=== PATIENT | female | born 1955 | race Caucasian/White ===

== ENCOUNTER 2019-10-26 14:40 | Outpatient (CLI) | payer OTHER, SELFPAY ==
--- NOTE | ~2019-10-26 | MM_ITS ---
EXAMINATION: MM screening [facility] BI w elle HISTORY: Screening mammogram TECHNIQUE: Craniocaudal and mediolateral oblique 3-D tomosynthesis images were obtained and synthetic 2-D images were generated. CAD analysis was submitted and interpreted. COMPARISON: 09/28/2018 bilateral digital screening mammogram BREAST PARENCHYMAL COMPOSITION: There are scattered areas of fibroglandular density.. FINDINGS: Benign-appearing intramammary lymph node, upper outer quadrant right breast. Stable fibrogl andular asymmetry. There is no evidence of suspicious mass, calcification, or architectural distortio n to suggest malignancy in either breast. There has been no suspicious interval change. IMPRESSION: 1. No mammographic evidence of malignancy. 2. Recommend routine screening mammography in one year. BI-RADS Category 2: Benign finding(s). Reviewed, dictated and finalized at location A. DIRECTOR
== END 2019-10-26 14:41 | disposition home or self-care (01) ==
LOC: ANHIMG 14:45
DX: Z12.31 Encounter for screening mammogram for malignant neoplasm of breast (principal)
CPT/HCPCS: 77063; 77067

== ENCOUNTER 2021-04-01 15:28 | Outpatient (CLI) | payer OTHER, SELFPAY ==
--- NOTE | ~2021-04-01 | MM_ITS ---
EXAMINATION: MM screening [facility] BI w elle HISTORY: Screening TECHNIQUE: Craniocaudal and mediolateral oblique 3-D tomosynthesis images were obtained and synthetic 2-D images were generated. CAD analysis was submitted and interpreted. COMPARISON: Comparison to multiple prior studies sequentially, with oldest reviewed study dated 09/28. BREAST PARENCHYMAL COMPOSITION: There are scattered areas of fibroglandular density. FINDINGS: There is no evidence of suspicious mass, calcification, or architectural distortion to sugg est malignancy in either breast. There has been no suspicious interval change. IMPRESSION: 1. No mammographic evidence of malignancy. 2. Recommend routine screening mammography in one year. BI-RADS Category 1: Negative Reviewed, dictated and finalized at location A.
== END 2021-04-01 15:29 | disposition home or self-care (01) ==
LOC: ANHIMG 15:30
PROVIDERS: PCP Family Medicine; Visit Provider Family Medicine
DX: Z12.31 Encounter for screening mammogram for malignant neoplasm of breast (principal)
CPT/HCPCS: 77063; 77067

== ENCOUNTER 2023-11-21 11:30 | Outpatient (CLI) | payer OTHER, SELFPAY ==
--- NOTE | ~2023-11-21 | MM_ITS ---
EXAMINATION: MM screening [facility] BI w elle HISTORY: Screening mammogram TECHNIQUE: Craniocaudal and mediolateral oblique 3-D tomosynthesis images were obtained and synthetic 2-D images were generated. CAD analysis was submitted and interpreted. COMPARISON: 04/01/2021, 10/26/2019 bilateral screening mammogram examinations BREAST PARENCHYMAL COMPOSITION: There are scattered areas of fibroglandular density. FINDINGS: There is no evidence of suspicious mass, calcification, or architectural distortion to sugg est malignancy in either breast. There has been no suspicious interval change. IMPRESSION: 1. No mammographic evidence of malignancy. 2. Recommend routine screening mammography in one year. BI-RADS Category 1: Negative Reviewed, dictated and finalized at location A.
== END 2023-11-21 11:31 | disposition home or self-care (01) ==
LOC: ANHIMG 11:47
PROVIDERS: PCP Family Medicine; Visit Provider Family Medicine
DX: Z12.31 Encounter for screening mammogram for malignant neoplasm of breast (principal)
CPT/HCPCS: 77063; 77067

== ENCOUNTER 2025-03-21 13:38 | Outpatient (CLI) | payer MEDICARE, MEDICAID, SELFPAY ==
--- NOTE | ~2025-03-21 | MM_ITS ---
EXAMINATION: MM screening [facility] BI w elle HISTORY: Screening TECHNIQUE: Craniocaudal and mediolateral oblique 3-D tomosynthesis images were obtained and synthetic 2-D images were generated. CAD analysis was submitted and interpreted. COMPARISON: Comparison to multiple prior studies sequentially, with oldest reviewed study dated 09/28. BREAST PARENCHYMAL COMPOSITION: Not dense: There are scattered areas of fibroglandular density. FINDINGS: There is no evidence of suspicious mass, calcification, or architectural distortion to sugg est malignancy in either breast. There has been no suspicious interval change. IMPRESSION: 1. No mammographic evidence of malignancy. 2. Recommend routine screening mammography in one year. BI-RADS Category 1: Negative Reviewed, dictated and finalized at location A.
--- OUTSIDE RECORDS SUMMARY | 2025-03-21 13:42 | XMS_ITS | Referral Summary ---
Author Organization [facility] Address [address] [place] [address] Care Team Providers Care Clay Artisan Name Role Phone Klaus Krishnamurthy DO Primary Care Provider + Encounters Date Type Department Care Team Description 03/10/2025 7:45 AM CDT Lab [facility] [address] [place] [id number] 03/03/2025 Orders Only [facility] [address] [place] [id number] Klaus Krishnamurthy DO 01/17/2025 1:00 PM CDT Office Visit [facility] [address] [facility] [address] [place] [phone] Azalea Pearl NP TIA (transient ischemic attack); Hypokalemia from Last 3 Months Allergies Active Allergy Reactions Criticality Noted Date Comments Azithromycin Clindamycin Other (See comments) Low 03/30/2019 bleeding Guaifenesin Unknown 03/30/2019 unknown Nitrofurantoin Medications cholecalciferol (VITAMIN D-3) 2,000 unit capsule Take 2 capsules (4,000 Units total) by mouth daily Active potassium chloride ER 20 mEq CR tablet TAKE 1 TABLET(20 MEQ) BY MOUTH THREE TIMES DAILY 270 tablet 3 4 Active spironolactone (ALDACTONE) 25 mg tablet TAKE 1 TABLET BY MOUTH EVERY DAY 90 tablet 3 4 Active magnesium oxide (MAG-OX) 400 mg (241.3 mg elemental magnesium) tabletIndicatio ns:hypomagnesem ia Take 1 tablet (400 mg total) by mouth daily Active aspirin 81 mg chewable tablet Take 1 tablet (81 mg total) by mouth daily 30 tablet 1 5 12/10/19 Active Additional Information Patient not taking.Reported on 01/17/2025 atorvastatin (LIPITOR) 10 mg tablet Take 1 tablet (10 mg total) by mouth daily 30 tablet 1 5 12/10/19 Active Additional Information Patient not taking.Reported on 01/17/2025 Active Problems Problem Noted Date Diagnosed Date TIA (transient ischemic attack) 12/08/2024 Nausea and vomiting, unspecified vomiting type 0 05/14/2024 Hypomagnesemia 03/30/2019 Hypokalemia 04/03/2009 Ventricular premature beats 04/03/2009 Social History Tobacco Use Types Packs/Day Years Used Date Smoking Tobacco: Never Smokeless Tobacco: Never Tobacco Cessation:Counseling Given: Not Answered Alcohol Use Standard Drinks/Week Comments Not Currently 0 (1 standard drink = 0.6 oz pur e alcohol) AUDIT-C Answer Date Recorded Q1: How often do you have a drink containing alcohol? Never 05/14/2024 Q2: How many drinks containi ng alcohol do you have on a typical day when you are drinking? Patient does not drink Q3: How often do you have si x or more drinks on one occasion? Never 05/14/2024 Personal Safety Answer Date Recorded Have you ever been in or are you currently in a harmful physical or emotional relationship or is someone making you feel afraid or unsafe? 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 Gender Identity Not on file Sexual Orientation Not on file Last Filed Vital Signs Vital Sign Reading Time Taken Comments Blood Pressure 118/80 01/17/2025 12:55 PM CDT Pulse 84 01/17/2025 12:55 PM CDT Temperature 36.5 C (97.7 F) 12/09/2024 7:30 AM CDT Respiratory Rate 16 12/09/2024 7:30 AM CDT Oxygen Saturation 98% 01/17/2025 12:55 PM CDT Inhaled Oxygen Concentration - - Weight 59.4 kg (131 lb) 01/17/2025 12:55 PM CDT Height 165.1 cm (5' 5) 01/17/2025 12:55 PM CDT Body Mass Index 21.8 01/17/2025 12:55 PM CDT Plan of Treatment Not on file Procedures Procedure Name Priority Date/Time Associated Diagnosis Comments DIFFERENTIAL AUTO Routine 03/10/2025 7:5 1 AM CDT VITAMIN D 25 HYDROXY Routine 03/10/2025 7:51 AM CDT VITAMIN B12 Routine 03/10/2025 7:51 AM CDT T4, FREE Routine 03/10/2025 7:51 AM CDT TSH Routine 03/10/2025 7:51 AM CDT HEPATIC FUNCTION PANEL Routine 03/10/2025 7:51 AM CDT LIPID PANEL Routine 03/10/2025 7:51 AM CDT CBC WITH AUTO DIFFERENTIAL Routine 03/10/2025 7:51 AM CDT from Last 3 Months Results * Differential, auto (03/10/2025 7:51 AM CDT) Pathologist [facility] Neutrophil abs 2.45 1.50 - 6.50 K/cumm Imm gran abs 0.00 0.00 - 0.10 K/cumm [facility] Lymphocyte abs 2.37 0.80 - 3.30 K/cumm [facility] Monocyte abs 0.56 0.20 - 0.80 K/cumm [facility] Eosinophil abs 0.20 0.00 - 0.50 K/cumm [facility] Basophil abs 0.06 0.00 - 0.10 K/cumm [facility] Neutrophil pct 43.5 % [facility] Comment: Interpretive Data Percent cell count reference ranges are not reported, since discordance with absolute values may lead to misinterpretation of CBC data. Current Interpretive Data was last revised on 2017. Imm gran pct 0.0 % [facility] Comment: Interpretive Data Percent cell count reference ranges are not reported, since discordance with absolute values may lead to misinterpretation of CBC data. Current Interpretive Data was last revised on 2017. Lymphocyte pct 42.0 % [facility] Comment: Interpretive Data Percent cell count reference ranges are not reported, since discordance with absolute values may lead to misinterpretation of CBC data. Current Interpretive Data was last revised on 2017. Monocyte pct 9.9 % [facility] Comment: Interpretive Data Percent cell count reference ranges are not reported, since discordance with absolute values may lead to misinterpretation of CBC data. Current Interpretive Data was last revised on 2017. Eosinophil pct 3.5 % [facility] Comment: Interpretive Data Percent cell count reference ranges are not reported, since discordance with absolute values may lead to misinterpretation of CBC data. Current Interpretive Data was last revised on 2017. Basophil pct 1.1 % [facility] Comment: Interpretive Data Percent cell count reference ranges are not reported, since discordance with absolute values may lead to misinterpretation of CBC data. Current Interpretive Data was last revised on 2017. Blood 03/10/2025 7:51 AM CDT 03/10/2025 8:15 AM CDT Klaus Krishnamurthy DO LAB BLOOD ORDERABLES Fin al Result [facility] [address] [facility] [place] [address] * CBC with auto differential (03/10/2025 7:51 AM CDT) WBC 5.64 3.80 - 9.90 K/cumm Hgb 14.7 11.9 - 15.5 g/dL [facility] Hct 44.5 35.6 - 45.5 % [facility] Plt 267 150 - 400 K/cumm [facility] MPV 11.0 9.1 - 12.3 fL [facility] RBC 4.82 3.90 - 5.20 M/cumm [facility] MCV 92.3 81.3 - 96.4 fL [facility] MCH 30.5 27.1 - 33.3 pg [facility] MCHC 33.0 32.3 - 35.7 g/dL [facility] RDW CV 13.6 11.1 - 14.9 % [facility] RDW SD 46.5 35.7 - 48.1 fL [facility] NRBC abs 0.00 0.00 - 0.01 K/cumm [facility] Blood 03/10/2025 7:51 AM CDT 03/10/2025 8:15 AM CDT Klaus Krishnamurthy DO LAB BLOOD ORDERABLES Fin al Result Performing Organization Address [facility] Co de Phone Number [address] [place] [address] * Vitamin D 25 hydroxy (03/10/2025 7:51 AM CDT) Vitamin D 25-OH 78.0 30.0 - 80.0 ng/mL Blood 03/10/2025 7:51 AM CDT 03/10/2025 8:15 AM CDT Klaus Krishnamurthy DO LAB BLOOD ORDERABLES Fin al Result Performing Organization Address [facility] Co de Phone Number [address] [place] [address] * TSH (03/10/2025 7:51 AM CDT) Thyroid Stimulating Hormone 0.79 0.30 - 4.20 mcIUnit/mL Blood 03/10/2025 7:51 AM CDT 03/10/2025 8:15 AM CDT Klaus Krishnamurthy DO LAB BLOOD ORDERABLES Fin al Result Performing Organization Address [facility] Co de Phone Number [address] [place] [address] * T4, free (03/10/2025 7:51 AM CDT) Pathologist [facility] Free T4 0.91 0.90 - 1.70 ng/dL Blood 03/10/2025 7:51 AM CDT 03/10/2025 8:15 AM CDT Klaus Krishnamurthy LAB BLOOD ORDERABLES Fin al Result Performing Organization Address [facility] de Phone Number [address] [place] [address] * Vitamin B12 (03/10/2025 7:51 AM CDT) [facility] Vitamin B12 275 230 - 1,250 pg/mL Blood 03/10/2025 7:51 AM CDT 03/10/2025 8:15 AM CDT Klaus Krishnamurthy LAB BLOOD ORDERABLES Fin al Result Performing Organization Address [facility] de Phone Number [address] [place] [address] * Hepatic function panel (03/10/2025 7:51 AM CDT) [facility] Bilirubin, total 0.6 0.1 - 1.2 mg/dL Bilirubin, direct 0.2 0.1 - 0.3 mg/dL [facility] Protein, pl 6.9 6.5 - 8.5 g/dL [facility] Albumin 4.3 3.5 - 5.0 g/dL [facility] Alk phos 91 40 - 130 Units/L [facility] ALT 18 7 - 45 Units/L [facility] AST 27 10 - 45 Units/L [facility] Blood 03/10/2025 7:51 AM CDT 03/10/2025 8:15 AM CDT Klaus Krishnamurthy DO LAB BLOOD ORDERABLES Fin al Result Performing Organization Address [facility] Co de Phone Number [address] [place] [address] * (ABNORMAL) Lipid panel (03/10/2025 7:51 AM CDT) Cholesterol 271(H) 30 - 199 mg/dL Comment: Interpretive Data Ages < or = 19 years Acceptable: <170 mg/dL Borderline high: 170-199 mg/dL High: >or= 200 mg/dL Ages > or = 20 years Desirable: <200 mg/dL Borderline high: 200-239 mg/dL High: >or= 240 mg/dL Literature References: 1. Expert Panel on Integrated Guidelines for Cardiovascular Health and Risk Reduction in Children and Adolescents. Pediatrics 2011;128:S213 2. NCEP Expert Panel. Circulation 2004;110:227 Current Interpretive Data was last revised on 2018. Triglycerides 149 <=149 mg/dL [facility] Comment: Interpretive Data Ages < or = 9 years Acceptable: <75 mg/dL Borderline high: 75-99 mg/dL High: >or= 100 mg/dL Ages 10 to 20 years Acceptable: <90 mg/dL Borderline high: 90-129 mg/dL High: >or= 130 mg/dL Ages > or = 20 years Desirable: <150 mg/dL Borderline high: 150-199 mg/dL High: 200-499 mg/dL Very high: >or= 499 mg/dL Literature References: 1. Expert Panel on Integrated Guidelines for Cardiovascular Health and Risk Reduction in Children and Adolescents. Pediatrics 2011;128:S213 2. NCEP Expert Panel. Circulation 2004;110:227 Current Interpretive Data was last revised on 2018. HDL 65 >=40 mg/dL [facility] Comment: Interpretive Data Ages < or = 19 years Acceptable: >45 mg/dL Borderline low: 40-45 mg/dL Low: <40 mg/dL Ages > or = 20 years Desirable: >or= 60 mg/dL Low: <40 mg/dL Literature References: 1. Expert Panel on Integrated Guidelines for Cardiovascular Health and Risk Reduction in Children and Adolescents. Pediatrics 2011;128:S213 2. NCEP Expert Panel. Circulation 2004;110:227 Current Interpretive Data was last revised on 2018. LDL, calculated 179(H) <=129 mg/dL [facility] Comment: Interpretive Data Ages < or = 19 years Acceptable: <110 mg/dL Borderline high: 110-129 mg/dL High: >or= 130 mg/dL Ages > or = 20 years Optimal: <100 mg/dL Near optimal: 100-129 mg/dL Borderline high: 130-159 mg/dL High: >160 mg/dL Calculated using the Barak LDL-C estimating equation. This equation was implemented on 2024. Prior to this date LDL-C was estimated using the Friedewald equation. Literature References: 1. Expert Panel on Integrated Guidelines for Cardiovascular Health and Risk Reduction in Children and Adolescents. Pediatrics 2011;128:S213 2. NCEP Expert Panel. Circulation 2004;110:227 3. Barak Pinto et al. RAINE Cardiol. 2019January 12;5(5):540-548. doi: 10.1001/[email or web address] Current Interpretive Data was last revised on 2024. Non-HDL Cholesterol 206 mg/dL [facility] Comment: Interpretive Data Ages < or = 19 years Acceptable: <120 mg/dL Borderline high: 120-144 mg/dL High: >145 mg/dL Ages > or = 20 years When triglycerides are >200 mg/dL, Non-HDL cholesterol is a secondary target of therapy with treatment goals that are 30 mg/dL greater than the LDL cholesterol target. Literature References: 1. Expert Panel on Integrated Guidelines for Cardiovascular Health and Risk Reduction in Children and Adolescents. Pediatrics 2011;128:S213 2. NCEP Expert Panel. Circulation 2004;110:227 Current Interpretive Data was last revised on 2018. Chol/HDL ratio 4 [facility] Blood 03/10/2025 7:51 AM CDT 03/10/2025 8:15 AM CDT us Klaus Krishnamurthy DO LAB BLOOD ORDERABLES Fin al Result [facility] [address] [facility] [place] [address] from Last 3 Months Insurance IDPA IDPA [facility] MEDICARE ADVANTAGE IDPA Advance Directives For more information, please contact: [phone] Documents on File Type Date Recorded Patient Portable Canteen Operator Expl anation ADVANCE DIRECTIVE 12/08/2024 3:48 PM Power of Tassel Maker-Medical * Full Code (Latest Code Status on File) Date Activated Date Inactivated Comments 12/08/2024 10:34 AM 12/09/2024 2:41 PM * Full Code Date Activated Date Inactivated Comments 05/14/2024 5:49 PM 05/15/2024 5:28 PM Care Teams Clay Artisan Relationship Specialty Start Date End Date Klaus Krishnamurthy DO [address] [address] PCP - General Family Medicine 12/08/24
--- OUTSIDE RECORDS SUMMARY | 2025-03-21 13:43 | XMS_ITS | Clinical Summary ---
Author Organization [facility] Address [address] [place] [address] Care Team Providers Care Warp Splitter Name Role Phone Klaus Krishnamurthy DO Primary Care Provider + Allergies Active Allergy Reactions Criticality Noted Date [...] mouth daily 30 tablet 1 5 12/10/19 26 Active Additional Information Patient not taking.Reported on 01/17/2025 Active Problems Problem Noted Date Diagnosed Date TIA (transient ischemic attack) 12/08/2024 Nausea and vomiting, unspecified vomiting type 0 05/14/2024 Hypomagnesemia 03/30/2019 Hypokalemia 04/03/2009 Ventricular premature beats 04/03/2009 Encounters Date Type Department Care Team Description 03/10/2025 7:45 AM CDT Lab [facility] [address] [place] [address] 03/03/2025 Orders Only [facility] [address] [place] [address] Klaus Krishnamurthy, 01/17/2025 1:00 PM CDT Office Visit [facility] Neurology [address] [facility] [address] [place] [address] Azalea Pearl NP TIA (transient ischemic attack); Hypokalemia from Last 3 Months Medical History Medical History Date Comments Hypokalemia Hypomagnesemia Vitamin D deficiency Gitelman syndrome Family History Medical History Relation Name Comments Hypertension Cousin Stroke Mother's Brother Stroke Mother's Sister Relation Name Status Comments Cousin Mother's Brother Mother's Sister Social History Tobacco Use Types Packs/Day Years [...] on file 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 Gender Identity Not on file Sexual Orientation Not on file Obstetrics History Last Filed Vital Signs Vital Sign Reading [...] 01/17/2025 12:55 PM CDT Plan of Treatment Health Maintenance Due Date Last Done Comments Colon Cancer Screening-Colonoscopy 1955 Depression Screening 1957 Hepatitis C Screening 1957 Osteoporosis Screening-Bone Density Scan 1957 DTaP/Tdap/Td Vaccine (1 - Tdap) 1968 Hepatitis B Screening 1975 Pneumococcal vaccine 65+ (1 of 1 - PCV) 2007 Zoster Vaccine (1 of 2) 2007 Breast Cancer Screening-Mammogram 09/29/2019 019, 09/28/2018 Well Visit 65+ 2022 Influenza Vaccine (#1) 2025 Fall Risk Assessment 12/09/2025 12/09/2024 Procedures Procedure Name Priority Date/Time Associated Diagnosis [...] * Differential, auto (03/10/2025 7:51 AM CDT) Neutrophil abs 2.45 1.50 - 6.50 K/cumm Imm gran abs 0.00 0.00 - 0.10 K/cumm [facility] Lymphocyte abs 2.37 0.80 - 3.30 K/cumm [facility] Monocyte abs 0.56 0.20 - 0.80 K/cumm [facility] Eosinophil abs 0.20 0.00 - 0.50 K/cumm [facility] Basophil abs 0.06 0.00 - 0.10 K/cumm [facility] Neutrophil pct 43.5 % [facility] Comment: Interpretive Data Percent cell count reference ranges are not reported, since discordance with absolute values may lead to misinterpretation of CBC data. Current Interpretive Data was last revised on 2017. Imm gran pct 0.0 % [facility] Comment: Interpretive Data Percent cell count reference ranges are not reported, since discordance with absolute values may lead to misinterpretation of CBC data. Current Interpretive Data was last revised on 2017. Lymphocyte pct 42.0 % [facility] Comment: Interpretive Data Percent cell count reference ranges are not reported, since discordance with absolute values may lead to misinterpretation of CBC data. Current Interpretive Data was last revised on 2017. Monocyte pct 9.9 % [facility] Comment: Interpretive Data Percent cell count reference ranges are not reported, since discordance with absolute values may lead to misinterpretation of CBC data. Current Interpretive Data was last revised on 2017. Eosinophil pct 3.5 % [facility] Comment: Interpretive Data Percent cell count reference ranges are not reported, since discordance with absolute values may lead to misinterpretation of CBC data. Current Interpretive Data was last revised on 2017. Basophil pct 1.1 % [facility] Comment: Interpretive Data Percent cell count reference ranges are not reported, since discordance with absolute values may lead to misinterpretation of CBC data. Current Interpretive Data was last revised on 2017. Blood 03/10/2025 7:51 AM CDT 03/10/2025 8:15 AM CDT Klaus Krishnamurthy DO LAB BLOOD ORDERABLES Fin al Result Performing Organization Address [facility] de Phone Number [facility] [address] [place] [address] * CBC with auto differential (03/10/2025 7:51 AM CDT) [facility] WBC 5.64 3.80 - 9.90 K/cumm Hgb 14.7 11.9 - 15.5 g/dL [facility] Hct 44.5 35.6 - 45.5 % [facility] Plt 267 150 - 400 K/cumm [facility] MPV 11.0 9.1 - 12.3 fL [facility] RBC 4.82 3.90 - 5.20 M/cumm [facility] MCV 92.3 81.3 - 96.4 fL [facility] MCH 30.5 27.1 - 33.3 pg [facility] MCHC 33.0 32.3 - 35.7 g/dL [facility] RDW CV 13.6 11.1 - 14.9 % [facility] RDW SD 46.5 35.7 - 48.1 fL [facility] NRBC abs 0.00 0.00 - 0.01 K/cumm [facility] Blood 03/10/2025 7:51 AM CDT 03/10/2025 8:15 AM CDT Klaus Krishnamurthy DO LAB BLOOD ORDERABLES Fin al Result Performing Organization Address [facility] de Phone Number [address] [place] [address] * Vitamin D 25 hydroxy (03/10/2025 7:51 AM CDT) Pathologist [facility] Vitamin D 25-OH 78.0 30.0 - 80.0 ng/mL Blood 03/10/2025 7:51 AM CDT 03/10/2025 8:15 AM CDT Klaus Krishnamurthy DO LAB BLOOD ORDERABLES Fin al Result Performing Organization Address [facility]/ZIP Co de Phone Number [address] [address] * TSH (03/10/2025 7:51 AM CDT) Thyroid Stimulating Hormone 0.79 0.30 - 4.20 mcIUnit/mL Blood 03/10/2025 7:51 AM CDT 03/10/2025 8:15 AM CDT Klaus Krishnamurthy DO LAB BLOOD ORDERABLES Fin al Result Performing Organization Address [facility] Co de Phone Number [address] [place] [address] * T4, free (03/10/2025 7:51 AM CDT) Free T4 0.91 0.90 - 1.70 ng/dL Blood 03/10/2025 7:51 AM CDT 03/10/2025 8:15 AM CDT Klaus Krishnamurthy DO LAB BLOOD ORDERABLES Fin al Result Performing Organization Address [facility] Co de Phone Number [address] [place] [address] * Vitamin B12 (03/10/2025 7:51 AM CDT) Vitamin B12 275 230 - 1,250 pg/mL Blood 03/10/2025 7:51 AM CDT 03/10/2025 8:15 AM CDT Klaus Krishnamurthy DO LAB BLOOD ORDERABLES Fin al Result Performing Organization Address [facility] Co de Phone Number [address] [place] [address] * Hepatic function panel (03/10/2025 7:51 AM CDT) Bilirubin, total 0.6 0.1 - 1.2 mg/dL Bilirubin, direct 0.2 0.1 - 0.3 mg/dL [facility] Protein, pl 6.9 6.5 - 8.5 g/dL [facility] Albumin 4.3 3.5 - 5.0 g/dL [facility] Alk phos 91 40 - 130 Units/L [facility] ALT 18 7 - 45 Units/L [facility] AST 27 10 - 45 Units/L [facility] Blood 03/10/2025 7:51 AM CDT 03/10/2025 8:15 AM CDT Klaus Krishnamurthy DO LAB BLOOD ORDERABLES Fin al Result [facility] [address] [facility] Department of Laboratories [place], [place] [id number] * (ABNORMAL) Lipid panel (03/10/2025 7:51 AM [...] revised on 2018. Triglycerides 149 <=149 mg/dL [facility] Comment: Interpretive Data Ages < or = [...] 3. Barak Pinto et al. RAINE Cardiol. 2020 January 12;5(5):540-548. doi: [email or web address] Current Interpretive Data was last revised on 2024. Non-HDL Cholesterol 206 mg/dL [facility] Comment: Interpretive Data Ages < [...] BLOOD ORDERABLES Fin al Result [facility] [address] [facility] Department [place] [address] from Last 3 Months Insurance [employer] Member Subscriber Plan / Payer (Ef fective 2023-Present) Name:Cande Navarro Heraclio Relation to Subscriber:Self Name:Cande Navarro Heraclio Payer ID:[id number] Group ID:Not on file Type:MEDICAID [place] Address: [place] [id number] [employer]VT [facility] MEDICARE ADVANTAGE [facility] MEDIC[facility] Address: [address] [address] [place] [address] IDPA Advance Directives For more information, please contact: [phone] Documents on File Type Date Recorded Patient Insurance Verification Clerk Expl anation ADVANCE DIRECTIVE 12/08/2024 3:48 PM Power of Cottage Parent-Medical * Full Code (Latest Code Status on File) Date Activated Date Inactivated Comments 12/08/2024 10:34 AM 12/09/2024 2:41 PM * Full Code Date Activated Date Inactivated Comments 05/14/2024 5:49 PM 05/15/2024 5:28 PM Care Teams Warp Splitter Relationship Specialty Start Date End Date Klaus Krishnamurthy DO [address] [address] PCP - General Family Medicine 12/08/24
--- OUTSIDE RECORDS SUMMARY | 2025-03-21 13:43 | XMS_ITS | Encounter Summary ---
Author Organization [facility] Care Team Providers Care Scissors Sharpener Name Role Phone No, Physician Primary Care Provider [phone] Kianna Garcia MD Primary Care Provider [phone] Klaus Krishnamurthy DO Primary Care Provider + Encounter Details Date Type Department Care Team (Latest Contact Info) Description 02/20/2016 Orders Only [facility]INCON[facility] ProviderGabbi MD [address] [place] [phone] Social History Tobacco Use Types Packs/Day Years Used Date Smoking Tobacco: Never Comments Unknown Sex and Gender Information Value Date Recorded Sex Assigned at Not on file Legal Sex Female 2:29 AM [address] Gender Identity Not on file Sexual Orientation Not on file documented as of this encounter Plan of Treatment Not on file documented as of this encounter Procedures Procedure Name Priority Date/Time Associated Diagnosis Comments SCAN - LABS 02/20/2016 12:00 AM CDT documented in this encounter Results * SCAN - LABS (02/20/2016 12:00 AM CDT) Narrative 02/20/2016 12:00 AM CDT Ordered by an unspecified provider. Historical Provider Final Res ult documented in this encounter Visit Diagnoses Not on filedocumented in this encounter Care Teams Scissors Sharpener Relationship Specialty Start Date End Date No, Physician PCP - General 03/29/19 03/29/19 Kianna Garcia MD PCP - General Diesel Mechanic 03/30/19 12/07/24 Klaus Krishnamurthy DO [address] [address] PCP - General Family Medicine 12/08/24 documented as of this encounter
--- OUTSIDE RECORDS SUMMARY | 2025-03-21 13:43 | XMS_ITS | Clinical Summary ---
Author Organization [facility] Address [address] [place] [address] Care Team Providers Care Supply Teacher Name Role Phone Kianna Garcia MD Primary Care Provider [phone] Social History Tobacco Use Types Packs/Day Years Used Date Smoking Tobacco: Never Assessed Comments Unknown Sex and Gender Information Value Date Recorded Sex Assigned at Not on file Legal Sex Female 5:24 PM CDT Gender Identity Not on file Sexual Orientation Not on file Plan of Treatment Health Maintenance Due Date Last Done Comments Colorectal Cancer Screening Colonoscopy (10 Years) 1957 Hepatitis C 1975 DTaP, Tdap and Td Vaccines ( 1 - Tdap) 1976 Mammogram Screening 1997 Pneumococcal Vaccine: 50+ Ye ars (1 of 1 - PCV) 2007 Zoster Vaccines (1 of 2) 2007 Dexa Scan (General) 2022 COVID-19 Vaccine (1 - 2023-2 5 season) 2024 RSV Immunization or 60+ Years (1 - 1-dose 75+ series) 2032 Meningococcal B Vaccine Aged Out No l onger eligible based on patient's age to complete this topic Meningococcal Vaccine Aged Out No wai jesus eligible based on patient's age to complete this topic RSV Immunizations Under 20 Months Aged Out No longer eligible based on patient's age to complete this topic Care Teams Supply Teacher Relationship Specialty Start Date End Date Kianna Gracia MD [address] [facility] [id number] [place] [address] PCP - General 08/20/16
--- OUTSIDE RECORDS SUMMARY | 2025-03-21 13:43 | XMS_ITS | Data Portability ---
Author Organization [facility] Address [address] [place] [address] Assessment Encounter Date Assessment Date Assessment LastModified by Organization Details LastModified Time 10/04/2019 10/04/2019 Pt will schedule repeat mammogram at [facility] this September 2019. [email or web address] Not available 10/04/2019 16:44:01 Plan of Treatment Reminders Order Date Submit Date Provider Last Modified By Organization Details Last Modified Time Details Appointments NEW PATIENT 30 2024 01:00P Blair Ya MD Not available Not available Not available ANY 15 2025 01:00P Blair Krishnamurthy, DO Not available Not available Not available Lab vitamin D, 25-hydr oxy, total, serum 2024 025 joel [facility] Fax, [address] [place], [address], 03/15/2025 13:59:25 lipid panel, serum 2024 025 DANILO [facility] Fax, [address] [place], [address], 03/10/2025 14:44:44 hepatic functio n panel, serum 2024 025 joel [facility] Fax, [address] [place], [address], 03/15/2025 13:59:00 TSH + free T4, serum 2024 025 joel [facility] Fax, [address] [place], [address], 03/15/2025 13:59:08 vitamin B12, serum 2024 025 [email or web address] [facility] Fax, [address] [place], [address], 03/15/2025 13:59:16 CBC w/ auto diff 2024 025 [email or web address] [facility] Fax, [address] [facility] [place], [address], 03/03/2025 07:45:23 fecal occult blood, immunoa ssay, stool 2019 020 DANILO [facility], [address] [facility] [address], [address], [place], [address], 10/21/2019 20:08:01 hepatit is C Ab, signal- to-cuto ff, serum or plasma 2019 020 DANILO [facility], [facility], [address], [place], [address], 10/05/2019 12:09:44 BMP, serum or plasma 2019 020 DANILO [facility], [address] [place] [address] [address], [address], [place], [address], 10/05/2019 12:09:42 lipid panel, serum 2019 020 DANILO [facility], [facility] [address], [address], [place], [address], 10/05/2019 12:09:42 TSH, ultra-s ensitiv e, serum 2019 020 DANILO [facility], [facility] [address], [address], [place], [address], 10/05/2019 12:09:45 CBC w/ auto diff 2019 020 [address], [address], [place], [address], 10/05/2019 12:09:41 vitamin D, 25-hydr oxy, total, serum 2019 020 DANILO PATEL, [address], [address], [place], [address], 10/05/2019 12:09:43 fecal occult blood, immunoa ssay, stool 2018 019 [address], [address], [place], [address], 09/21/2018 11:20:56 CBC w/ auto diff 2016 017 DANILO PATEL, [address], [address], [place], [address], 08/21/2017 10:36:18 vitamin B12, serum 2016 017 [address], [address], [place], [address], 08/21/2017 10:36:29 folate, serum 2016 017 [address], [address], [place], [address], 08/21/2017 10:36:21 vitamin D, 25-hydr oxy, total, serum 2016 017 [address], [address], [place], [address], 08/21/2017 10:36:24 TSH, ana-s itiандрей e, serum 2016 017 DANILO PATEL, [place] [facility], [address], [place], [address], 08/21/2017 10:36:26 Referral gynecol ogist referra l 2024 025 DANILO [facility] [address] [place], [address], 03/20/2025 12:22:00 ophthal mologis t referra l 2024 025 MARIA LGucci [facility], [address] [place], [address], 12/13/2024 09:55:26 gynecol ogist referra l 2024 025 [facility], [address] [facility] , [address], [place], [address], 03/15/2025 14:29:52 Procedures None recorde d. Surgeries None recorde d. Imaging MAMMO, screeni esteban brown al [email or web address] [place] [address] - [facility], [address], [address], [place], [address], 01/20/2025 10:53:02 Medication Orders cyanoco balamin (vit B-12) 1,000 mcg/mL injecti on solutio n 2024 025 [facility] [address] [employer], [address] [place], [address], 03/15/2025 15:05:51 Patient TargetsNo targets recorded. Patient Instructions Encounter Date Encounter Id Patient Instructions Last Modified By Organization Details Last Modified Time 08/20/2017 [id number] I was present and available in the family medicine clinic to discuss the patient's care during the appointment. I agree with the resident's assessment and plan as documented. HL [email or web address] Not available 08/26/2017 13:36:01 09/21/2018 [id number] anxiety disorder: care instructions melosiebo Not available 09/21/2018 11:20:46 anxiety and panic coping education melosiebo Not available 09/21/2018 11:20:46 10/04/2019 [id number] Tdap (tetanus, diphtheria, pertussis) vaccine: what you need to know melosiebo Not available 10/04/2019 16:55:16 td (tetanus, diphtheria) vaccine: what you need to know melosiebo Not available 10/04/2019 16:55:16 Reason for Referral Sales Support Representative Referral for Adult health examination Referring Physician: Klaus Krishnamurthy [facility], Encounter Date: 12/12/2024 Financial Examiner Referral for Ad ult health examination Referring Physician: Klaus Krishnamurthy [facility], Encounter Date: 12/12/2024 Financial Examiner Referral for Sa mpling of cervix for Papanicolaou smear Referring Physician: Klaus Krishnamurthy [facility], Encounter Date: 03/15/2025 Results Created Date Observation Date Name Description Value Unit Range Abnormal Flag Note LastModifiedBy Organization Detail LastModifiedTime 08/20/20 17 08/21/2017 CBC w/ auto diff WBC 8.3 x10e3 /uL 3.4-10 .8 Not Available [facility] ([facility]) [address] [place], [address], 08/21/2017 10:36:18 08/20/20 17 08/21/2017 CBC w/ auto diff RBC 4.75 x10e6 /uL 3.77-5 .28 Not Available [facility] ([facility]) [address] [place], [address], 08/21/2017 10:36:18 08/20/20 17 08/21/2017 CBC w/ auto diff hemoglobin 14.7 g/dL 11.1-1 5.9 Ple ase note refer ence kimmy russo e Not Available [facility] ([facility]) [address] [place], [address], 08/21/2017 10:36:18 08/20/20 17 08/21/2017 CBC w/ auto diff hematocrit 43.2 % 34.0-4 6.6 Not Available [facility] ([facility]) [address] [facility], [place], [address], 08/21/2017 10:36:18 08/20/20 17 08/21/2017 CBC w/ auto diff MCV 91 fL 79-97 Not Available [facility] ([facility]) [address] [place], [address], 08/21/2017 10:36:18 08/20/20 17 08/21/2017 CBC w/ auto diff MCH 30.9 pg 26.6-3 3.0 Not Available [facility] ([facility]) [address] [facility], [place], [address], 08/21/2017 10:36:18 08/20/20 17 08/21/2017 CBC w/ auto diff MCHC 34.0 g/dL 31.5-3 5.7 Not Available [facility] ([facility]) [address] [place], [address], 08/21/2017 10:36:18 08/20/20 17 08/21/2017 CBC w/ auto diff RDW 14.4 % 12.3-1 5.4 Not Available [facility] ([facility]) [address] [facility], [place], [address], 08/21/2017 10:36:18 08/20/20 17 08/21/2017 CBC w/ auto diff platelets 339 x10e3 /uL 150-37 9 Not Available [facility] ([facility]) [address] [place], [address], 08/21/2017 10:36:18 08/20/20 17 08/21/2017 CBC w/ auto diff neutrophils 71 % not estab. Not Available [facility] ([facility]) [address] [facility], [place], [address], 08/21/2017 10:36:18 08/20/20 17 08/21/2017 CBC w/ auto diff lymphs 22 % not estab. Not Available [facility] ([facility]) [address] [place], [address], 08/21/2017 10:36:18 08/20/20 17 08/21/2017 CBC w/ auto diff monocytes 6 % not estab. Not Available [facility] ([facility]) [address] [facility], [place], [address], 08/21/2017 10:36:18 08/20/20 17 08/21/2017 CBC w/ auto diff eos 1 % not estab. Not Available [facility] ([facility]) [address] [place], [address], 08/21/2017 10:36:18 08/20/20 17 08/21/2017 CBC w/ auto diff basos 0 % not estab. Not Available [facility] ([facility]) [address] [facility], [place], [address], 08/21/2017 10:36:18 08/20/20 17 08/21/2017 CBC w/ auto diff immature cells NETWORK SUPPORT TECHNICIAN Not Available [facility] ([facility]) [address] [place], [address], 08/21/2017 10:36:18 08/20/20 17 08/21/2017 CBC w/ auto diff neutrophils (absolute) 5.9 x10e3 /uL 1.4-7. 0 Not Available [facility] ([facility]) [address] [place], [address], 08/21/2017 10:36:18 08/20/20 17 08/21/2017 CBC w/ auto diff lymphs (absolute) 1.8 x10e3 /uL 0.7-3. 1 Not Available [facility] ([facility]) [address] [place], [address], 08/21/2017 10:36:18 08/20/20 17 08/21/2017 CBC w/ auto diff monocytes(ab solute) 0.5 x10e3 /uL 0.1-0. 9 Not Available [facility] ([facility]) [address] [facility], [place], [address], 08/21/2017 10:36:18 08/20/20 17 08/21/2017 CBC w/ auto diff eos (absolute) 0.1 x10e3 /uL 0.0-0. 4 Not Available [facility] ([facility]) [address] [facility], [place], [address], 08/21/2017 10:36:18 08/20/20 17 08/21/2017 CBC w/ auto diff baso (absolute) 0.0 x10e3 /uL 0.0-0. 2 Not Available [facility] ([facility]) [address] [facility], [place], [address], 08/21/2017 10:36:18 08/20/20 17 08/21/2017 CBC w/ auto diff immature granulocytes 0 % not estab. Not Available [facility] ([facility]) [address] [facility], [place], [address], 08/21/2017 10:36:18 08/20/20 17 08/21/2017 CBC w/ auto diff immature grans (abs) 0.0 x10e3 /uL 0.0-0. 1 Not Available [facility] ([facility]) [address] [facility], [place], [address], 08/21/2017 10:36:18 08/20/20 17 08/21/2017 CBC w/ auto diff NRBC NETWORK SUPPORT TECHNICIAN Not Available [facility] ([facility]) [address] [place], [address], 08/21/2017 10:36:18 08/20/20 17 08/21/2017 CBC w/ auto diff hematology comments: NETWORK SUPPORT TECHNICIAN Not Available [facility] ([facility]) [address] [facility], [place], [address], 08/21/2017 10:36:18 08/20/20 17 08/21/2017 folat e, serum folate (folic acid), serum >20.0 NG/mL >3.0 A serum folat e doris ntrat ion of less than 3.1 ng/mL is consi dered to repre sent clini obi defic iency . Not Available [facility] ([facility]) [address] [facility], [place], [address], 08/21/2017 10:36:21 08/20/20 17 08/21/2017 vitam in D, 25-hy droxy , total , serum vitamin D, 25-hydroxy 50.0 NG/mL 30.0-1 00.0 Vitam in D defic iency has been defin ed by the Insti tute of Medic ine and an Endoc rine Socie ty pract ice guide line as a level of serum 25-OH vitam in D less than 20 ng/mL (1,2) . The Endoc rine Socie ty went on to furth er defin e vitam in D insuf ficie ncy as a level betwe en 21 and 29 ng/mL (2). 1. IOM (Inst itute of Medic ine). 2009. Dieta ry refer ence intak es for calci um and D. Chuyita sanchez DC: [facility] Press . 2. Jerardo kelyl MF, Helen loyd [place], Anny off-F errar i ELIAS, et al. Evalu ation , treat ment, and preve ntion of vitam in D defic iency : an Endoc rine Socie ty clini obi pract ice guide line. JCEM. 2010; 96(7) :1911 -30. Not Available [facility] ([facility]) [address] [facility], [place], [address], 08/21/2017 10:36:23 08/20/20 17 08/21/2017 TSH, ultra -sens itive , serum TSH 1.380 uIU/m L 0.450- 4.500 Not Available [facility] ([facility]) [address] [place], [address], 08/21/2017 10:36:26 08/20/20 17 08/21/2017 vitam in B12, serum vitamin B12 695 pg/mL 232-12 45 Ple ase note refer ence kimmy garzon russo e Not Available [facility] ([facility]) [address], [place], [address], 08/21/2017 10:36:28 10/04/19 20 10/05/2019 CBC w/ auto diff WBC 6.0 x10e3 /uL 3.4-10 .8 Not Available [facility] ([facility]) [address] [facility], [place], [address], 10/05/2019 12:09:41 10/04/19 20 10/05/2019 CBC w/ auto diff RBC 4.68 x10e6 /uL 3.77-5 .28 Not Available [facility] ([facility]) [address] [facility], [place], [address], 10/05/2019 12:09:41 10/04/1910/05/2019 CBC w/ auto diff hemoglobin 14.4 g/dL 11.1-1 5.9 Not Available [facility] ([facility]) [address] [facility], [place], [address], 10/05/2019 12:09:41 10/04/1910/05/2019 CBC w/ auto diff hematocrit 43.1 % 34.0-4 6.6 Not Available [facility] ([facility]) [address] [facility] [place], [address], 10/05/2019 12:09:41 10/04/19 20 10/05/2019 CBC w/ auto diff MCV 92 fL 79-97 Not Available [facility] ([facility]) [address] [facility] [place], [address], 10/05/2019 12:09:41 10/04/19 20 10/05/2019 CBC w/ auto diff MCH 30.8 pg 26.6-3 3.0 Not Available [facility] ([facility]) [address] [facility], [place], [address], 10/05/2019 12:09:41 10/04/19 20 10/05/2019 CBC w/ auto diff MCHC 33.4 g/dL 31.5-3 5.7 Not Available [facility] ([facility]) [address] [facility], [place], [address], 10/05/2019 12:09:41 10/04/19 20 10/05/2019 CBC w/ auto diff RDW 14.1 % 11.7-1 5.4 Not Available [facility] ([facility]) [address] [facility], [place], [address], 10/05/2019 12:09:41 10/04/19 20 10/05/2019 CBC w/ auto diff platelets 349 x10e3 /uL 150-45 0 Not Available [facility] ([facility]) [address] [facility], [place], [address], 10/05/2019 12:09:41 10/04/19 20 10/05/2019 CBC w/ auto diff neutrophils 48 % not estab. Not Available [facility] ([facility]) [address] [facility], [place], [address], 10/05/2019 12:09:41 10/04/19 20 10/05/2019 CBC w/ auto diff lymphs 38 % not estab. Not Available [facility] ([facility]) [address] [facility], [place], [address], 10/05/2019 12:09:41 10/04/19 20 10/05/2019 CBC w/ auto diff monocytes 9 % not estab. Not Available [facility] ([facility]) [address] [facility], [place], [address], 10/05/2019 12:09:41 10/04/19 20 10/05/2019 CBC w/ auto diff eos 4 % not estab. Not Available [facility] ([facility]) [address] [place], [address], 10/05/2019 12:09:41 10/04/19 20 10/05/2019 CBC w/ auto diff basos 1 % not estab. Not Available [facility] ([facility]) [address] [place], [address], 10/05/2019 12:09:41 10/04/19 20 10/05/2019 CBC w/ auto diff immature cells NETWORK SUPPORT TECHNICIAN Not Available [facility] ([facility]) [address] [place], [address], 10/05/2019 12:09:41 10/04/19 20 10/05/2019 CBC w/ auto diff neutrophils (absolute) 2.9 x10e3 /uL 1.4-7. 0 Not Available [facility] ([facility]) [address] [place], [address], 10/05/2019 12:09:41 10/04/1910/05/2019 CBC w/ auto diff lymphs (absolute) 2.3 x10e3 /uL 0.7-3. 1 Not Available [facility] ([facility]) [address] [place], [address], 10/05/2019 12:09:41 10/04/19 20 10/05/2019 CBC w/ auto diff monocytes(ab solute) 0.5 x10e3 /uL 0.1-0. 9 Not Available [facility] ([facility]) [address] [place], [address], 10/05/2019 12:09:41 10/04/19 20 10/05/2019 CBC w/ auto diff eos (absolute) 0.3 x10e3 /uL 0.0-0. 4 Not Available [facility] ([facility]) [address] [place], [address], 10/05/2019 12:09:41 10/04/19 20 10/05/2019 CBC w/ auto diff baso (absolute) 0.0 x10e3 /uL 0.0-0. 2 Not Available [facility] ([facility]) [address] [facility] [place], [address], 10/05/2019 12:09:41 10/04/19 20 10/05/2019 CBC w/ auto diff immature granulocytes 0 % not estab. Not Available [facility] ([facility]) [address] [facility] [place], [address], 10/05/2019 12:09:41 10/04/19 20 10/05/2019 CBC w/ auto diff immature grans (abs) 0.0 x10e3 /uL 0.0-0. 1 Not Available [facility] ([facility]) [address] [place], [address], 10/05/2019 12:09:41 10/04/19 20 10/05/2019 CBC w/ auto diff NRBC NETWORK SUPPORT TECHNICIAN Not Available [facility] ([facility]) [address] [place], [address], 10/05/2019 12:09:41 10/04/19 20 10/05/2019 CBC w/ auto diff hematology comments: NETWORK SUPPORT TECHNICIAN Not Available [facility] ([facility]) [address] [place], [address], 10/05/2019 12:09:41 10/04/19 20 10/05/2019 BMP, serum or plasm a glucose 89 mg/dL 65-99 Not Available [facility] ([facility]) [address] [place], [address], 10/05/2019 12:09:42 10/04/19 20 10/05/2019 BMP, serum or plasm a BUN 10 mg/dL 8-27 Not Available [facility] ([facility]) [address] [place], [address], 10/05/2019 12:09:42 10/04/19 20 10/05/2019 BMP, serum or plasm a creatinine 0.78 mg/dL 0.57-1 .00 Not Available [facility] ([facility]) [address] [facility] [place], [address], 10/05/2019 12:09:42 10/04/19 20 10/05/2019 BMP, serum or plasm a eGFR if nonafricn AM 82 mL/mi n/1.7 3 >59 Not Available [facility] ([facility]) [address] [facility] [place], [address], 10/05/2019 12:09:42 10/04/19 20 10/05/2019 BMP, serum or plasm a eGFR if africn AM 94 mL/mi n/1.7 3 >59 Not Available [facility] ([facility]) [address] [place], [address], 10/05/2019 12:09:42 10/04/19 20 10/05/2019 BMP, serum or plasm a BUN/creatini ne ratio 13 12-28 Not Available [facility] ([facility]) [address] [place], [address], 10/05/2019 12:09:42 10/04/19 20 10/05/2019 BMP, serum or plasm a sodium 142 mmol/ L 134-14 4 Not Available [facility] ([facility]) [address] [place], [address], 10/05/2019 12:09:42 10/04/19 20 10/05/2019 BMP, serum or plasm a potassium 4.2 mmol/ L 3.5-5. 2 Not Available [facility] ([facility]) [address] [place], [address], 10/05/2019 12:09:42 10/04/19 20 10/05/2019 BMP, serum or plasm a chloride 102 mmol/ L 96-106 Not Available [facility] ([facility]) [address] [facility] [place], [address], 10/05/2019 12:09:42 10/04/19 20 10/05/2019 BMP, serum or plasm a carbon dioxide, total 26 mmol/ L 20-29 Not Available [facility] ([facility]) [address] [facility] [place], [address], 10/05/2019 12:09:42 10/04/19 20 10/05/2019 BMP, serum or plasm a calcium 9.9 mg/dL 8.7-10 .3 Not Available [facility] ([facility]) [address] [facility] [place], [address], 10/05/2019 12:09:42 10/04/19 20 10/05/2019 lipid panel , serum cholesterol, total 302 mg/dL 100-19 9 above high normal Not Available [facility] ([facility]) [address] [place], [address], 10/05/2019 12:09:42 10/04/19 20 10/05/2019 lipid panel , serum triglyceride s 226 mg/dL 0-149 above high normal Not Available [facility] ([facility]) [address] [facility] [place], [address], 10/05/2019 12:09:42 10/04/19 20 10/05/2019 lipid panel , serum HDL cholesterol 59 mg/dL >39 Not Available [facility]) [address] [place], [address], 10/05/2019 12:09:42 10/04/1910/05/2019 lipid panel , serum VLDL cholesterol obi 45 mg/dL 5-40 above high normal Not Available [facility] ([facility]) [address] [place], [address], 10/05/2019 12:09:42 10/04/1910/05/2019 lipid panel , serum LDL cholesterol calc 198 mg/dL 0-99 above high normal Not Available [facility] ([facility]) [address] [facility], [place], [address], 10/05/2019 12:09:42 10/04/19 20 10/05/2019 lipid panel , serum comment: NETWORK SUPPORT TECHNICIAN Not Available [facility] ([facility]) [address] [facility], [place], [address], 10/05/2019 12:09:42 10/04/1910/05/2019 vitam in D, 25-hy droxy , total , serum vitamin D, 25-hydroxy 36.1 NG/mL 30.0-1 00.0 Vitam in D defic iency has been defin ed by the Insti tute of Medic ine and an Endoc rine Socie ty pract ice guide line as a level of serum 25-OH vitam in D less than 20 ng/mL (1,2) . The Endoc rine Socie ty went on to furth er defin e vitam in D insuf ficie ncy as a level betwe en 21 and 29 ng/mL (2). 1. IOM (Inst itute of Medic ine). 2009. Geria ry refer ence reena es for calci um and D. Chuyita sanchez DC: The [facility] Press . 2. Jerardo kelly MF, Helen ey [place], Anny off-F errar i ELIAS, et al. Evalu ation , treat ment, and preve ntion of vitam in D defic iency : an Endoc rine Socie ty clini obi pract ice guide line. JCEM. 2010; 96(7) :1911 -30. Not Available [facility] ([facility]) [address] [facility], [place], [address], 10/05/2019 12:09:43 10/04/1910/05/2019 hepat itis C Ab, signa l-to- cutof f, serum or plasm a HCV Ab <0.1 s/co_ ratio 0.0-0. 9 Not Available [facility] ([facility]) [address] [facility], [place], [address], 10/05/2019 12:09:44 10/04/19 20 10/05/2019 hepat itis C Ab, signa l-to- cutof f, serum or plasm a comment: Commen t Non react polly HCV antib precious scree n is consi stent with no HCV infec tion, unles s recen t infec tion is suspe cted or other evide nce exist s to indic ate HCV infec tion. Not Available [facility] ([facility]) [address] [facility], [place], [address], 10/05/2019 12:09:44 10/04/19 20 10/05/2019 TSH, ultra -sens itive , serum TSH 0.594 uIU/m L 0.450- 4.500 Not Available [facility] ([facility]) [address] [facility], [place], [address], 10/05/2019 12:09:44 10/04/19 20 10/05/2019 cardi ovasc ular asses sment panel , serum interpretati on Note Suppl ement al repor t is avail able. Not Available [facility] ([facility]) [address] [facility], [place], [address], 10/05/2019 12:09:45 10/04/19 20 10/05/2019 cardi ovasc ular asses sment panel , serum pdf image . Not Available [facility] ([facility]) [address] [facility], [place], [address], 10/05/2019 12:09:45 10/20/19 20 10/21/2019 fecal occul t blood , immun oassa y, stool occult blood, fecal, ia Negati ve negati ve Not Available [facility] ([facility]) [address] [facility], [place], [address], 10/21/2019 20:08:01 09/29/19 19 09/28/2018 MAMMO , scree tatiana, bilat eral No observ ation record ed. [email or web address] Not Available 2018 10:21:48 10/26/19 20 10/26/2019 germania TORRES, digit al, bilat eral No observ ation record ed. [facility] [address], [place], [address], 10/31/2019 18:49:13 Result Notes None recorded. 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 Klaus Krishnamurthy DO Attn: Angeline hennessy,[address] [place], [address], [facility] 4 08:56:35 Hypokalemia 44192647 Active 2023 Klaus Krishnamurthy DO Attn: Angeline hennessy,[address] [place], [address], [facility] 4 08:56:36 Hypomagnesemia 755639152 Active 2023 Klaus Krishnamurthy DO Attn: Angeline hennessy,[address] [place], [address], [facility] 4 08:56:37 Unifocal premature ventricular complexes 86389631 Active 2023 Klaus Krishnamurthy DO Attn: Angeline hennessy,[address] [place], [address], [place] 4 08:56:38 Adult health examination Active 2024 Klaus Krishnamurthy DO Attn: Angeline hennessy,[address] [place], [address], [place] 5 13:13:19 Dyslipidemia 847889224 Active 2024 Klaus Krishnamurthy DO Attn: Angeline hennessy,[address] [place], [address], [place] [facility] 5 13:16:15 History of transient ischemic attack 796443699 Active 2024 Klaus Krishnamurthy DO Attn: Angeline hennessy,[address] [facility], [place], [address], [place] [facility] 5 13:16:17 Fatigue 26189825 Active 2024 Klaus Krishnamurthy DO Attn: Angeline hennessy,[address] [facility], [place], [address], [place] [facility] 5 14:18:33 Hemorrhoids 61618477 Active Kianna Garcia MD Attn: Angeline g,[address] [facility], [place], [address], [place] [facility] 5 23:43:26 Kidney disease 92632846 Active Liza Woodruff MD Attn: Angeline hennessy,[address] [facility], [place], [address], [place] [facility] 6 17:40:00 Dehydration 17351297 Active Jesus Dave MD Attn: Angeline g,[address] [facility], [place], [address], [place] [facility] 6 21:13:10 Problem Notes None recorded. Medical Equipment None Reported. Allergies Allergen ID Allergen Name Allergen Category Reaction Reaction Severity Criticality Documentation Date Start Date Code Code System Note Provider Name and Address Organization Details Recorded Time 55963 guaifenes in medicatio n Not available Not available Not available 02/02/2015 5032 RxNorm Mariposa Langston KENNEL KEEPER null, [place] [facility] 5 15:06:10 85435 phenyleph rine medicatio n Not available Not available Not available 02/02/2015 8163 RxNorm Mariposa Langston KENNEL KEEPER [place], [place] [facility] 5 15:06:10 03341 azithromy alyce medicatio n Not available Not available Not available 02/02/2015 16558 RxNorm Mariposa Langston KENNEL KEEPER [place], [place] [facility] 5 15:06:10 17285 nitrofura ntoin medicatio n Not available Not available Not available 02/02/2015 7454 RxNorm Mariposa Langston CMA [place], [place] [facility] 5 15:06:10 16531 phenylpro panolamin e medicatio n Not available Not available Not available 02/02/2015 8175 RxNorm Mariposa Langston CMA [place] [facility] 5 15:06:10 00558 gatifloxa alyce medicatio n Not available Not available Not available 02/02/2015 40694 6 RxNorm Mariposa Langston CMA [place] [facility] 5 15:06:10 89337 clindamyc in Not available other Not available low 02/02/20152018 2582 RxNorm bleed ing Cielo PalmyraTACO null, [place] - [facility] 5 12:45:55 Medications Name Sig Start Date Stop Date Status Note LastModified by Organization Details LastModified Time atorvastati n 40 mg tablet Take 1 tablet every day by oral route. 12/12 completed Not Available Not Available Not Available clindamycin HCl 300 mg capsule 03/14 completed Not Available Not Available Not Available atorvastati n 10 mg tablet TAKE 1 TABLET BY MOUTH EVERY DAY active Not Available Not Available No t Available potassium chloride ER 10 mEq tablet,exte nded release 03/14 completed Not Available Not Available Not Available spironolact one 25 mg tablet TAKE 1 TABLET BY MOUTH EVERY DAY active Not Available Not Available No t Available potassium chloride 20 mEq/15 mL oral liquid 03/14 completed Not Available Not Available Not Available potassium chloride ER 20 mEq tablet,exte nded release(par t/cryst) TAKE 1 TABLET BY MOUTH THREE TIMES DAILY WITH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
== END 2025-03-21 13:39 | disposition home or self-care (01) ==
PROVIDERS: PCP Family Medicine; Visit Provider Family Medicine
DX: Z12.31 Encounter for screening mammogram for malignant neoplasm of breast (principal)
CPT/HCPCS: 77063; 77067